=== PATIENT | male | born 1955 | race Caucasian/White ===

== ENCOUNTER 2016-07-08 11:15 | Emergency (ER) | payer BC, OTHER ==
[2016-07-08] MEDS ORDERED: HYDROMORPHONE HCL INJ/PF 2 MG/ML AMPULE IV ONE ×2 (11:32→12:36)
--- NOTE | 2016-07-08 11:33 | ER Document Report ---
ED Extremity Problem, Upper - General Mode of Arrival: Medic Information source: Patient - HPI Patient complains to provider of: Altered sensation, Injury, Pain, Left, Arm Onset: This morning Where: Work Context: Fall Associated symptoms: Other - See notes above <MELISA MARAVILLA - Last Filed: 07/08/16 19:51> <MARGOCAMERONJOZEF - Last Filed: 07/08/16 20:06> - General Chief Complaint: Arm Injury Stated Complaint: FALL/LEFT ARM INJURY Notes: 60-year-old male presents to the ED via EMS complaining of a left arm injury that occurred earlier this morning. Patient reports that he was checking safes on a rafter that were approximately 5 feet off the ground. Patient was seated on the rafter shimmying towards the edge in order to jump down onto his legs. Patient jumped off the rafter when his foot hit a chair and he fell forward and proceeded to catch himself with his left arm. Patient reports that his entire body weight had fallen on his left arm. EMS was called after there was an obvious deformity to the patient's left arm. En route the patient received 1 mg of IV Dilaudid at approximately 1030. (MELISA MARAVILLA) - Related Data Allergies/Adverse Reactions: No Known Allergies Allergy (Unverified 08/10/11 10:14) Past Medical History - General Information source: Patient - Social History Smoking Status: Never Smoker Cigarette use (# per day): No Chew tobacco use (# tins/day): No Frequency of alcohol use: None Drug Abuse: None Family History: Reviewed & Not Pertinent - Past Medical History Cardiac Medical History: Reports: Hx Hypercholesterolemia - Immunizations Hx Diphtheria, Pertussis, Tetanus Vaccination: No <MELISA MARAVILLA - Last Filed: 07/08/16 19:51> Review of Systems - Review of Systems Constitutional: No symptoms reported EENT: No symptoms reported Cardiovascular: No symptoms reported Respiratory: No symptoms reported Gastrointestinal: No symptoms reported Genitourinary: No symptoms reported Male Genitourinary: No symptoms reported Musculoskeletal: See HPI, Other - left arm deformity and pain Skin: No symptoms reported Hematologic/Lymphatic: No symptoms reported Neurological/Psychological: No symptoms reported -: Yes All other systems reviewed and negative <MELISA MARAVILLA - Last Filed: 07/08/16 19:51> Physical Exam <MELISA MARAVILLA - Last Filed: 07/08/16 19:51> <JOZEF AUSTIN - Last Filed: 07/08/16 20:06> - Vital signs Vitals: Temp Pulse Resp BP Pulse Ox 73 F L 73 16 128/74 H 97 07/08/16 12:02 07/08/16 12:02 07/08/16 12:02 07/08/16 12:02 07/08/16 12:02 - Notes Notes: GENERAL: Alert, interacts well. No acute distress. HEAD: Normocephalic, atraumatic. EYES: Pupils equal, round, and reactive to light. Extraocular movements intact. ENT: Oral mucosa moist, tongue midline. NECK: Full range of motion. Supple. Trachea midline. LUNGS: Clear to auscultation bilaterally, no wheezes, rales, or rhonchi. No respiratory distress. HEART: Regular rate and rhythm. No murmurs, gallops, or rubs. 3 second capillary refill to the left digits. ABDOMEN: Soft, non-tender. Non-distended. EXTREMITIES: No edema, radial and ulnar pulses 2/4 bilaterally. No cyanosis. Able to fully flex and extend fingers to form a fist. Deformity to the left elbow with significant ecchymosis and abrasions to the ulnar aspect. Left arm is deviated to the ulnar direction. NEUROLOGICAL: Alert and oriented x3. Normal speech. Decreased sensation to the left thumb and 2nd digit. Significantly decreased, almost absent sensation to the left third digit. Patient is unable to feel sharp sensation to the third digit. 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 PSYCH: Normal affect, normal mood. SKIN: Warm, dry, normal turgor. No rashes or lesions noted. (MELISA MARAVILLA) Course - Diagnostic Test Radiology reviewed: Image reviewed, Reports reviewed - Left elbow dislocation with limited fracture of the radial head. - Consults Dr. Chicas Time consulted: 13:45 <MELISA MARAVILLA - Last Filed: 07/08/16 19:51> <JOZEF AUSTIN - Last Filed: 07/08/16 20:06> - Re-evaluation Re-evalutation: 07/08/16 13:09 Upon reviewing the left elbow x-ray, the patient was informed that he has dislocated it and will need a conscious sedation in order to reduce it. Conscious sedation consent form was filled out by Dr. Austin and given to the nurse in charge of the patient. (MELISA MARAVILLA) 07/08/16 20:05 X-ray showed fracture dislocation, initial attempt under conscious sedation partially reduce the fracture, second attempt completely reduce the fracture. It was splinted in hyperflexion and pronation as per recommendation by Dr. Chicas. Sensation normalized after successful reduction. Patient discharged home. (JOZEF AUSTIN) - Vital Signs Vital signs: Temp Pulse Resp BP Pulse Ox 97.9 F 71 23 H 116/79 99 07/08/16 17:51 07/08/16 15:35 07/08/16 17:51 07/08/16 17:51 07/08/16 17:51 - Consults Dr. Chicas Reason for consultation: 07/08/16 13:45 Patient was discussed with Dr. Chicas and states to have the patient follow-up in his clinic in 3-5 days. 07/08/16 15:12 After reviewing a post reduction x-ray, the patient was discussed with Dr. Chicas and he recommends to splint the left arm (secondary to a fracture) and also to hyperflex and pronate the joint in order to move it back into position. (MELISA MARAVILLA) Procedures - Joint Reduction/Fracture Care Left Elbow Consent obtained: Yes Conscious sedation: Yes - Versed at 1320, Ketamine at 1321, and Versed + Ketamine at 1540. Post-reduction x-ray: Joint not reduced <MELISA MARAVILLA - Last Filed: 07/08/16 19:51> - Conscious Sedation Conscious sedation Time started: 13:20 Time completed: 13:35 Consent obtained: Yes Indication: fracture dislocation of the left elbow Last meal: last evening Prior complications: Procedural sedation Normal healthy pt.: P1. - ASA Classification Airway Evaluation: Normal anatomy Mallampati Classification: Class 2 Used during procedure: Suction available, IV access obtained, Pulse ox on pt., awake overnight monitor on pt. Medications administered: Versed, Ketamine Reversal agents: None I personally performed/intraservice time: Sedation, Procedure, 30 min or less - 15 minutes Complications: No - Immobilization Left Arm Pre-Proc Neuro Vasc Exam: Normal Immobilizer type: Long arm posterior, Sling Performed by: Provider, PCT Post-Proc Neuro Vasc Exam: Normal Alignment checked and good: Yes - Joint Reduction/Fracture Care Left Elbow Pre-procedure NV exam: No - not intact, cannot feel several digits on the left hand. Fracture: Closed Post-procedure NV exam: Yes - sensation improving but not yet normal. Reduction attempts: 2 Complications: No <JOZEF AUSTIN - Last Filed: 07/08/16 20:06> - Conscious Sedation Conscious sedation Notes: Conscious sedation had to be repeated to more fully reduce the fracture dislocation, restarted at 1540, stopped at 1555. Again used ketamine and Versed , again no complications. (JOZEF AUSTIN) - Joint Reduction/Fracture Care Left Elbow Notes: 07/08/16 20:04 After second reduction attempt patient had good reduction radiographically, placed in splint, sensation has returned completely to the left hand. Sensation completely normalized. (JOZEF AUSTIN) Discharge <MELISA MARAVILLA - Last Filed: 07/08/16 19:51> <JOZEF AUSTIN - Last Filed: 07/08/16 20:06> - Discharge Clinical Impression: Dislocation of left elbow Qualifiers: Encounter type: initial encounter Qualified Code(s): S53.105A - Unspecified dislocation of left ulnohumeral joint, initial encounter Fracture of radial head, left, closed Qualifiers: Encounter type: initial encounter Fracture alignment: nondisplaced Qualified Code(s): S52.125A - Nondisplaced fracture of head of left radius, initial encounter for closed fracture Fracture of coronoid process of ulna, left, closed Qualifiers: Encounter type: initial encounter Fracture alignment: nondisplaced Qualified Code(s): S52.045A - Nondisplaced fracture of coronoid process of left ulna, initial encounter for closed fracture Condition: Stable Disposition: HOME, SELF-CARE Instructions: Dislocation ([facility]) Prescriptions: Oxycodone HCl/Acetaminophen [Percocet 5-325 mg Tablet] 1 - 2 tab PO Q4H PRN #15 tablet PRN Reason: Referrals: BRYAN CHICAS, [ACTIVE STAFF] - Follow up in 3-5 days (Call tomorrow morning to arrange follow up appointment.) Scribe Attestation: 07/08/16 20:06 I personally performed the services described in the documentation, reviewed and edited the documentation which was dictated to the scribe in my presence, and it accurately records my words and actions. (JOZEF AUSTIN) Scribe Documentation - Scribe Written by Scribe:: Nena Burk, 07/08/2016 [id number] acting as scribe for :: Geovanna <MELISA MARAVILLA - Last Filed: 07/08/16 19:51>
[2016-07-08] MEDS ORDERED: KETAMINE HCL INJ 500 MG/10 ML VIAL IV ONE ×2 (12:25→15:20)
[2016-07-08] MEDS ORDERED: LORAZEPAM INJ 2 MG/1 ML VIAL IV ONE (12:25)
[2016-07-08] MEDS ORDERED: MIDAZOLAM 2 MG/2 ML INJ IV ONE ×2 (12:37→15:20)
[2016-07-08] MEDS ORDERED: OXYCODONE-ACETAMINOPHEN 5-325 MG TABLET PO ONE (17:45)
[2016-07-08 17:59] VITALS: BP 116/79
== END 2016-07-08 17:58 | disposition home or self-care (01) ==
LOC: ER 11:15
PROC: 0PSJXZZ Reposition Left Radius, External Approach (ICD-10-PCS; principal; 2016-07-08)
DX: S52.125A Nondisplaced fracture of head of left radius, initial encounter for closed fracture (principal); S52.045A Nondisplaced fracture of coronoid process of left ulna, initial encounter for closed fracture; W17.89XA Other fall from one level to another, initial encounter; Y93.89 Activity, other specified; Y99.0 Civilian activity done for income or pay
CPT/HCPCS: 99284; 96374; 73070; 73080; 24655; J2250; J3490; J1170

== ENCOUNTER → 2016-07-11 | Outpatient (CLI) | payer BC, OTHER | LOC: RAD 11:55 | PROVIDERS: ATTEND Orthopaedic Surgery | DX: S52.122A Displaced fracture of head of left radius, initial encounter for closed fracture (principal); X58.XXXA Exposure to other specified factors, initial encounter ==